=== PATIENT | male | born 1955 | race Asian ===

== ENCOUNTER 2019-09-05 04:01 | Emergency (ER) | payer OTHER ==
[~2019-09-05] VITALS: Ht 167.6 cm; Wt 81.6 kg
[2019-09-05 04:05] VITALS: Ht 167.6 cm; Wt 81.6 kg
[2019-09-05 04:41] VITALS: BP 120/73
== END 2019-09-05 04:41 | disposition other institution (70) ==
LOC: ED 04:01
DX: Z02.89 Encounter for other administrative examinations (principal)